=== PATIENT | female | born 1945 | race Caucasian/White ===

== ENCOUNTER 2018-12-17 15:22 | Outpatient (CLI) | payer MEDICARE ==
--- NOTE | 2018-12-17 17:37 | RAD ---
RIGHT SHOULDER THREE VIEWS 12/17/18 No fracture, dislocation or AC joint widening was seen. No periarticular calcifications are present. IMPRESSION: No acute findings. POS: HOME
== END 2018-12-17 15:23 | disposition home or self-care (01) ==
LOC: BURRAD 15:22
PROVIDERS: ATTEND Family Medicine
DX: M25.511 Pain in right shoulder (principal)

== ENCOUNTER 2018-12-28 10:03 | Outpatient (CLI) | payer MEDICARE | END 2018-12-28 10:04 | disposition home or self-care (01) | LOC: BUREKG 10:03 | PROVIDERS: ATTEND Family Medicine | DX: I10 Essential (primary) hypertension (principal) ==

== ENCOUNTER 2022-12-09 09:11 | Emergency (ER) | payer OTHER, MEDICAID | END 2022-12-09 11:12 | disposition home or self-care (01) | LOC: BURERS 09:11 | DX: S82.831A Other fracture of upper and lower end of right fibula, initial encounter for closed fracture (principal); E78.00 Pure hypercholesterolemia, unspecified; I10 Essential (primary) hypertension; Z79.899 Other long term (current) drug therapy; Z79.82 Long term (current) use of aspirin; W01.0XXA Fall on same level from slipping, tripping and stumbling without subsequent striking against object, initial encounter | CPT/HCPCS: 29515 ==